=== PATIENT | female | born 1940 | race African-American/Black ===

== ENCOUNTER → 2016-10-30 | Outpatient (CLI) | payer OTHER ==
[~2016-10-30] MED LIST: ACETAMINOPHEN-1 EAC1 PO; ACYCLOVIR 200200 MG PO; AMLODIPINE BESYL5 MG; ATORVASTATIN CA40 MG; ENALAPRIL-HCTZ1 EACH PO; FLONASE 0.05%50 MCG; GLUCOSAMINE H1500 MG; HAIR, SKIN & N1 EAC1; HYDROXYZINE HCL10 M2; HYDROXYZINE HCL25 M1 PO; LESCOL XL80 MG; LESCOL XL80 MG PO; LOSARTAN POTASS50 MG; METFORMIN HCL500 MG; MULTIVITAMINS1 EAC7; PREDNISONE50 MG PO; PREMPRO 0.45-11 EACH; PREMPRO 0.45-11 EACH PO; ZOFRAN 4 MG ORAL4 MG PO; [UNRECOGNIZED DRUG - OTHER]
== END ==
LOC: BC 15:22
DX: Z12.31 Encounter for screening mammogram for malignant neoplasm of breast (principal)